=== PATIENT | male | born 2000 | race Caucasian/White ===

== ENCOUNTER 2020-03-28 11:54 | Emergency (ER) | payer BC ==
[~2020-03-28] VITALS: Ht 185.4 cm; Wt 108.6 kg
[2020-03-28] MEDS ORDERED: ESCI5SOL3 PO (12:07)
[2020-03-28] MEDS ORDERED: HYDR100C PO (12:07)
[2020-03-28] MEDS ORDERED: LEXA1TAB PO (12:07)
--- NOTE | 2020-03-28 14:43 | REP ---
INDICATION: testicular pain COMPARISON: None. TECHNIQUE: Berger scale and color Doppler evaluation using linear and curved array transducer with color Doppler evaluation. FINDINGS: The left testicle appears mildly hyperemic and heterogeneous as compared to the right testicle and is suspicious for orchitis. There is no evidence for torsion. Incidental 5 x 4 x 7 mm left epididymal cyst noted. No left-sided hydrocele or varicocele. Right testicle appears normal in vascularity and echotexture without evidence for infectious/inflammatory process or torsion. No mass lesion identified. Small parenchymal calcifications are nonspecific. Small complex epididymal head cyst measures 3 x 4 mm. No right-sided hydrocele or varicocele. Right testicle measures 4.7 x 2.4 x 3.0 cm. Left testicle measures 4.3 x 2.1 x 3.3 cm. IMPRESSION: 1. Subtle asymmetric increased vascularity to the left testicle cannot be excluded and suggests orchitis. Clinical/physical correlation is recommended. 2. Few scattered bilateral incidental testicular calcifications noted without associated mass lesion. Incidental epididymal cysts as described above. <Electronically signed by Dragan Dawkins > 03/28/20 [id number]
[2020-03-28] MEDS ORDERED: KETOROLAC 60MG 2ML VIAL IM ONE (15:15)
[2020-03-28] MEDS ORDERED: DOXY100C37 PO (15:41)
[2020-03-28 16:05] VITALS: BP 127/58
[2020-03-28 16:42] LABS: CHLAMYDIA DNA AMPLIFICATION NEGATIVE (NEGATIVE); GC DNA AMPLIFICATION NEGATIVE (NEGATIVE)
--- NOTE | 2020-03-28 17:46 | ED PDOC ---
Post-Departure Follow-Up radiology report faxed to Janis Poon MD Mar 28, 2020 17:46
== END 2020-03-28 16:00 | disposition home or self-care (01) ==
LOC: M ED 11:54
DX: N45.2 Orchitis (principal); F41.9 Anxiety disorder, unspecified; F17.290 Nicotine dependence, other tobacco product, uncomplicated; Z79.899 Other long term (current) drug therapy
CPT/HCPCS: 76870; 81001; 87491; 87591; 93976; 96372; 99284; J1885